=== PATIENT | male | born 1985 | race Caucasian/White ===

== ENCOUNTER 2021-07-02 11:37 | Emergency (ER) | payer BC, SELFPAY ==
[2021-07-02 11:43] VITALS: BP 149/105; PULSE 81; RESP 16; TEMP 37.3; O2SAT 100
--- NOTE | 2021-07-02 11:52 | ED.SKABFB ---
HPI - Skin/Abscess/Foreign Bdy General Chief complaint: Extremity Problem,Nontraumatic Stated complaint: right pointer finger swollen Time Seen by Provider: 07/02/21 11:42 Source: patient and RN notes reviewed Mode of arrival: ambulatory Limitations: no limitations History of Present Illness HPI narrative: 35-year-old male presents with concern for swollen, tender, red tip of the the second right finger. Reports symptoms started yesterday, worsened today with swelling. Reports he does bite his fingernails. Denies any drainage from the area. MD complaint: abscess/boil Related Data Allergies Allergy/AdvReac Type Severity Reaction Status Date / Time No Known Allergies Allergy Unverified 05/17/18 19:33 Review of Systems Review of Systems: CONSTITUTIONAL: Denies malaise, chills, sweats, or fever. SKIN: Reports redness, swelling, tenderness to the tip of the second digit of the right hand MUSCULOSKELETAL: Denies muscle skeletal pain, decreased range of motion, myalgia. NEUROLOGIC: Denies numbness, weakness All systems reviewed & are unremarkable except as noted in HPI and below PMFSH Comments At time of signature, agree with nursing past medical, surgical, social and family history. There is no relevant family history pertinent to the presenting complaint Exam Narrative: GENERAL: Well-appearing, well-nourished, and in no acute distress. HEAD: Normocephalic, atraumatic. EYES: PERRLA, conjunctivae clear ENT: Mucous membranes moist. NECK: Supple. No lymphadenopathy CHEST: Speaks in complete sentences. No respiratory distress. HEART: Regular rate and rhythm. SKIN: Warm, dry. Distal tip of the second digit of the right hand is erythematous, edematous, fluctuant, tender consistent with paronychia NEURO: Alert and oriented x3. PSYCH: Normal mood and affect Course Course Emergency Course: Patient is aware of diagnosis, understands and agrees to treatment plan. Anticipatory guidance given. Patient agrees to follow-up as directed and is aware of reasons to seek care at the emergency department. Portions of this record may have been created with voice recognition software Vital Signs Vital signs: Vital Signs Temperature 99.2 F 07/02/21 11:43 Pulse Rate 81 07/02/21 11:43 Respiratory Rate 16 07/02/21 11:43 Blood Pressure 149/105 H 07/02/21 11:43 Pulse Oximetry 100 07/02/21 11:43 Temperature 99.2 F 07/02/21 11:43 Pulse Rate 81 07/02/21 11:43 Respiratory Rate 16 07/02/21 11:43 Blood Pressure 149/105 H 07/02/21 11:43 Pulse Oximetry 100 07/02/21 11:43 Reviewed. Procedures Abscess I/D hand: Date of Incision: 07/02/21 Time of Incision: 11:55 Side (if applicable): left Local Anesthetic: none (ice) Technique: needle aspiration Amount of fluid expressed (mL): 1 Irrigation: No Packing used?: none I&D Results: Pus MDM - Skin/Abscess/Foreign Bdy MDM Narrative Medical decision making narrative: Exam findings show no acute concerns or changes; patient is non-toxic appearing and is in no distress. Patient is appropriate for outpatient treatment and follow-up. Differential Diagnosis Differential diagnosis: Likely abscess of skin or subcutaneous tissue, cellulitis and other (Paronychia, musculoskeletal injury) Critical Care Time Critical Care Time Critical Care Time: No Discharge Plan Discharge Clinical Impression: Paronychia Patient Disposition: Home, Self-Care Condition: Stable Instructions: Antibiotic Form, Paronychia (ED) Additional Instructions: Soak your nail: Soak your nail in a mixture of equal parts vinegar and water 3 or 4 times each day. This will help decrease inflammation. Apply a warm compress: Soak a washcloth in warm water and place it on your nail. This will help decrease inflammation. Elevate: Raise your nail above the level of your heart as often as you can. This will help decrease swelling and pain. Prop your n
== END 2021-07-02 11:59 | disposition home or self-care (01) ==
PROVIDERS: Emergency Provider Nurse Practitioner
DX: L03.012 Cellulitis of left finger (principal)
CPT/HCPCS: 10160; 99213; G0463

== ENCOUNTER 2024-01-11 09:41 | Emergency (ER) | payer OTHER, SELFPAY ==
[2024-01-11 09:46] VITALS: BP 154/85; PULSE 82; RESP 14; TEMP 36.7; O2SAT 100
--- NOTE | 2024-01-11 10:07 | ED.URI ---
HPI - URI/Sore Throat General Chief Complaint: Upper Respiratory Infection Stated Complaint: cough/ scratchy throat Time Seen by Provider: 01/11/24 10:00 Source: patient, RN notes reviewed and old records reviewed Mode of arrival: ambulatory Limitations: no limitations History of Present Illness HPI Narrative: 38 year old male who presents to [facility] care with complaints of scratchy throat and cough for the past 7 days with no fevers noted. Patient reports that he has tried cough drops and Cepacol lozenges for his complaints. Patient report no sinus congestion or drainage, denies any ear pain, denies any chills or sweats or any body aches. Reports no known ill contacts. MD elicited complaint: cough and sore throat (scratchy) Pertinent past history: seasonal allergies Onset (ago): day(s) (7) Severity: mild Able to tolerate fluids by mouth: Yes Treatments prior to arrival: other (Cepacol and cough drops) Related Data Allergies Allergy/AdvReac Type Severity Reaction Status Date / Time No Known Allergies Allergy Unverified 05/17/18 19:33 Review of Systems Review of Systems: CONSTITUTIONAL: Denies malaise, chills, sweats, or fever. EYES: Denies visual changes, redness, or discharge. ENT: Reports no rhinorrhea, congestion, no sinus pain,no otalgia and positive for scratchy sore throat. CARDIOVASCULAR: Denies chest pain, palpitations, or edema. RESPIRATORY: Reports cough.? Denies dyspnea. GASTROINTESTINAL: Denies abdominal pain, nausea, vomiting, diarrhea SKIN: Denies rash or itching. MUSCULOSKELETAL: Denies myalgia. NEUROLOGIC: Denies headache. All systems reviewed & are unremarkable except as noted in HPI and below PMFSH Past Medical History Medical History (Updated 01/12/24 @ 07:54 by Elizabeth Fung NP) Dental abscess History of sinus problem Social History Social History (Updated 01/11/24 @ 10:20 by Elizabeth Fung NP) Smoking status: Current every day smoker Tobacco type: e-cigarettes/vaping Additional smoking assessment comments: previous cigarette use 1/2 ppd for 20 year, has vaped for 3 years Alcohol intake: current Alcohol use details: social Substance use type: does not use Gender identity (if verbalized by the patient): Male Comments At time of signature, agree with nursing past medical, surgical, social and family history. There is no relevant family history pertinent to the presenting complaint Exam Narrative: GENERAL: Well-appearing, well-nourished, and in no acute distress. HEAD: Normocephalic EYES: PERRLA, conjunctivae clear ENT: Nares clear, turbinates edematous and erythematous, clear discharge. Mucous membranes moist. TM pearly pimentel with dull light reflex bilaterally; no tragal tenderness. Oropharynx erythematous without lesions. Tonsils not enlarged and without exudate, no drooling, no hoarseness, no trismus, uvula midline.some post nasal drainage NECK: Supple. No lymphadenopathy CHEST: Clear to auscultation, breath sounds equal. No wheezing, rhonchi, rales, or stridor. No respiratory distress, speaks in full sentences.cough SAO2 100% on room air HEART: Regular rate and rhythm. No murmur heard. SKIN: Warm, dry, no rash. NEURO: Alert and oriented x3. PSYCH: Normal mood and affect Course Course Emergency Course: Patient is aware of diagnosis, understands and agrees to treatment plan.? Anticipatory guidance given.? Patient agrees to follow-up as directed and is aware of reasons to seek care at the emergency department. Portions of this record may have been created with voice recognition software Level of Care: Express Care Visit Vital Signs Vital signs: Vital Signs Temperature 36.7 C 01/11/24 09:46 Pulse Rate 82 01/11/24 09:46 Respiratory Rate 14 01/11/24 09:46 Blood Pressure 154/85 H 01/11/24 09:46 Pulse Oximetry 100 01/11/24 09:46 Oxygen Delivery Room Air 01/11/24 09:46 Temperature 36.7 C 01/11/24 09:4
== END 2024-01-11 10:30 | disposition home or self-care (01) ==
PROVIDERS: Emergency Provider Registered Nurse
DX: J02.9 Acute pharyngitis, unspecified (principal); R05.1 Acute cough; F17.290 Nicotine dependence, other tobacco product, uncomplicated
CPT/HCPCS: 87081; 87880; 99213; G0463

== ENCOUNTER 2024-07-22 11:06 | Emergency (ER) | payer OTHER, SELFPAY ==
--- NOTE | ~2024-07-22 | XR_ITS ---
EXAMINATION: XR hand RT min 3V DATE: 07/22/2024 11:55 INDICATION: Right hand pain. TECHNIQUE: 3 views of right hand were obtained. COMPARISON: None. FINDINGS: There is a transverse fracture of neck of fifth metacarpal. The distal fracture fragment de monstrates impaction and 25 degrees palmar angulation. Joint spaces are normal. IMPRESSION: 1. Transverse fracture of neck of fifth metacarpal. Reviewed, dictated and finalized at location A. [facility]
[2024-07-22 11:15] VITALS: BP 154/95; PULSE 85; RESP 16; TEMP 37.1; O2SAT 100
--- NOTE | 2024-07-22 11:48 | ED.GENADULT ---
HPI - General Adult General Chief complaint: Extremity Injury, Upper Stated complaint: Right Hand Injury Source: patient Mode of arrival: ambulatory Limitations: no limitations History of Present Illness HPI narrative: Pt presents for evaluation of right hand pain. He indicates he punched a wall yesterday. He now has swelling and bruising present. He does not provide me with a numerical rating or descriptive quality to the pain. He is right hand dominant. He has tendinitis in multiple joints chronically for which he takes OTC pain medications. Related Data Home Medications Medication Instructions Recorded Confirmed No Home Medications 07/22/24 07/22/24 Allergies Allergy/AdvReac Type Severity Reaction Status Date / Time No Known Allergies Allergy Unverified 07/22/24 11:27 Review of Systems Review of Systems: CONSTITUTIONAL: Denies fever, chills, or sweats. EYES: Denies visual changes, redness, or discharge. ENT: Denies rhinorrhea, congestion, sore throat, or otalgia. CARDIOVASCULAR: Denies chest pain, palpitations, or edema. RESPIRATORY: Denies cough or dyspnea. GASTROINTESTINAL: Denies abdominal pain, nausea, vomiting, or diarrhea. GENITOURINARY: Denies dysuria or hematuria. SKIN:Reports bruising to right hand MUSCULOSKELETAL: Reports right hand pain and swelling NEUROLOGIC: Denies headache, numbness, dizziness, or weakness. PSYCHIATRIC: Denies anxiety or depression. [facility] Past Medical History Medical History Dental abscess History of sinus problem Tendinitis Surgical History Surgical History No significant past surgical history Family History Family History Mother Family history non-contributory Social History Social History Smoking status: Current every day smoker Tobacco type: e-cigarettes/vaping Additional smoking assessment comments: previous cigarette use 1/2 ppd for 20 year, has vaped for 3 years Alcohol intake: current Alcohol use details: social Substance use type: does not use Gender identity (if verbalized by the patient): Male Exam Narrative: GENERAL: Well-appearing, well-nourished, and in no acute distress. HEAD: Normocephalic, atraumatic. EYES: PERRLA and EOMI. ENT: Nares clear, no rhinorrhea or epistaxis. Mucous membranes moist. Oropharynx without tonsillar hypertrophy exudate or other lesions. Bilateral TMs pearly pimentel nonbulging NECK: Supple. No adenopathy or masses. No carotid bruits or JVD CHEST: Clear to auscultation. No respiratory distress. No wheezes rales or rhonchi HEART: Regular rate and rhythm. No murmur heard. Normal peripheral pulses. ABDOMEN: Soft, nontender, nondistended, normal active bowel sounds. EXTREMITIES: Full range of motion of all digits the right hand. There is swelling noted to the dorsal aspect of the right hand. There is tenderness over the MCP joints of the 4th and 5th digits of the right hand. 5/5 hand float nurse strength bilaterally SKIN: Dorsal aspect of the right hand is ecchymotic NEURO: No focal deficits. Alert and oriented x3. PSYCH: Normal mood and affect. Course Course Emergency Course: This is a 39-year-old male who presented for evaluation of right hand pain after he punched a wall. He has evidence of 5th metacarpal neck fracture. Placed in ulnar gutter splint and provided with sling. Post-splint NV intact. He declined script for analgesics. He was advised to follow up with hand surgeon. He should go to the ER for intractable pain, paresthesias, change in temperature/color of the extremity. Pt in agreement with plan of care. Level of Care: Express Care Visit Vital Signs Vital signs: Vital Signs Temperature 37.1 C 07/22/24 11:15 Pulse Rate 85 07/22/24 11:15 Respiratory Rate 16 07/22/24 11:15 Blood Pressure 154/95 H 07/22/24 11:15 Pulse Oximetry 100 07/22/24 11:15 Oxygen Delivery Room Air 07/22/24 11:15 Temperature 37.1 C 07/22/24 11:15 Pulse Rate 85 07/22/24 11:15 Respiratory Rate 16 07/22/24 11:15 Blood Pressure 154/95 H 07/22/24 11:15 Pulse Oximetry 100 07/22/24 11:15 Oxygen Delivery Room Air 07/22/24 11:15 Procedures Orthopedic Splinting/Casting Injury #1: Splinting/Casting Date: 07/22/24 Splinting/Casting Time: 13:00 Side: right Upper Extremity Injury Location: hand Splint: customized in ED OCL: ulnar gutter Pre-Procedure Neuro Vascular Exam: normal Post-Procedure Neuro Vascular Exam: normal Additional Comments: Provided with sling Medical Decision Making Vital Signs Vital Signs: Vital Signs Temperature 37.1 C 07/22/24 11:15 Pulse Rate 85 07/22/24 11:15 Respiratory Rate 16 07/22/24 11:15 Blood Pressure 154/95 H 07/22/24 11:15 Pulse Oximetry 100 07/22/24 11:15 Oxygen Delivery Room Air 07/22/24 11:15 Temperature 37.1 C 07/22/24 11:15 Pulse Rate 85 07/22/24 11:15 Respiratory Rate 16 07/22/24 11:15 Blood Pressure 154/95 H 07/22/24 11:15 Pulse Oximetry 100 07/22/24 11:15 Oxygen Delivery Room Air 07/22/24 11:15 Imaging Data Radiologist's impression: EXAMINATION: XR hand RT min 3V DATE: 07/22/2024 11:55 INDICATION: Right hand pain. TECHNIQUE: 3 views of right hand were obtained. COMPARISON: None. FINDINGS: There is a transverse fracture of neck of fifth metacarpal. The distal fracture fragment demonstrates impaction and 25 degrees palmar angulation. Joint spaces are normal. IMPRESSION: 1. Transverse fracture of neck of fifth metacarpal. Discharge Plan Discharge Clinical Impression: Closed fracture of neck of metacarpal of right hand Qualifiers: Encounter type: initial encounter Metacarpal bone: fifth Patient Disposition: Home, Self-Care Condition: Stable Instructions: Antibiotic Form, Hand Fracture (ED) Patient Language: Divehi Prescriptions: No Action No Home Medications Follow-up/Referrals: Esperanza Pool [Other] Misbah Parsons MD [Physician] - Stand Alone Forms: Work/School Release IP Time of Disposition: 12:11
== END 2024-07-22 13:14 | disposition home or self-care (01) ==
PROVIDERS: Emergency Provider Nurse Practitioner
DX: S62.336A Displaced fracture of neck of fifth metacarpal bone, right hand, initial encounter for closed fracture (principal); W22.09XA Striking against other stationary object, initial encounter; F17.290 Nicotine dependence, other tobacco product, uncomplicated
CPT/HCPCS: 29125; 73130; 99214; G0463

== ENCOUNTER 2025-03-05 11:49 | Emergency (ER) | payer SELFPAY ==
--- OUTSIDE RECORDS SUMMARY | 2025-03-05 11:51 | XMS_ITS | Clinical Summary ---
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 Name Role Phone Unavailable Primary Care Provider Unavailabl e Immunizations Immunization Administration Dates Next Due INFLUENZA VACCINE QUADRIVALENT 3 YR UP PF IM 07/2022 Social History Tobacco Use Types Packs/Day Years Used Date Smoking Tobacco: Never Assessed Sex and Gender Information Value Date Recorded Sex Assigned at Not on file Legal Sex Male 3:32 PM CDT Gender Identity Not on file Sexual Orientation Not on file Plan of Treatment Health Maintenance Due Date Last Done Comments HPV VACCINES (1 - Male 3-dose series) 2000 DTAP/TDAP/TD VACCINES (1 - Tdap) 2004 HEPATITIS B VACCINES (1 of 3 - 19+ 3-dose series) 11/2003 INFLUENZA VACCINE (#1) 2025 05/27/2022 Insurance [employer] OPEN ACCESS
--- OUTSIDE RECORDS SUMMARY | 2025-03-05 11:51 | XMS_ITS | Clinical Summary ---
Author Organization [facility] Address [address] [place] [address] Care Team Providers Care Roofing Machine Tender Name Role Phone Esperanza Pool NP Primary Care Provider Cedric Rhoades MD Unavailable [phone] Deya Wilson NP Unavailable [phone] Allergies No known active allergies Medications ibuprofen 200 mg tab/cap Take 1 tablet/capsule (200 mg total) by mouth every 8 (eight) hours as needed for pain Patient takes 1-3 tablets as needed Active hydrocortisone (ANUSOL-HC) 25 mg suppositoryIndi cations:Hemorrh oids, unspecified hemorrhoid type Insert 1 suppository (25 mg total) into the rectum 2 (two) times a day as needed for hemorrhoids 30 suppository 08/02/20 23 Active famotidine (PEPCID) 20 mg tabletIndicatio ns:Gastroesopha geal reflux disease, unspecified whether esophagitis present Take 1 tablet (20 mg total) by mouth daily as needed for heartburn 60 tablet 09/04/19 25 Active Additional Information Patient not taking.Reported on 12/20/2024 ketoconazole (NIZORAL) 2 % creamIndication s:Rash and nonspecific skin eruption Apply topically daily 60 g 11/21/19 25 Active Active Problems Problem Noted Date Diagnosed Date DDD (degenerative disc disease), cervical 2024 Assessment & Plan (11/20/2024 1:34 PM CDT): -chronic, not at/near goal -Referral sent to pain management Chronic right shoulder pain 11/20/2024 Assessment & Plan (11/20/2024 1:34 PM CDT): -chronic, not at/near goal -Referral sent to pain management Rash and nonspecific skin eruption 10/09/2024 Assessment & Plan (11/20/2024 1:32 PM CDT): -chronic, not at/near goal -no signs of infection noted -Since patient did not respond to the triamcinolone, start on ketoconazole 2% cream daily for 2 weeks -Follow up if not improving Assessment & Plan (10/09/2024 12:25 PM OCEAN TRANSPORTATION INTERMEDIARY): -chronic, not at/near goal -no signs of infection noted -Start on triamcinolone 0.1% ointment twice daily as needed for up to 2 weeks at a time -Follow up if not improving Gastroesophageal reflux disease 09/04/2024 Assessment & Plan (12/20/2024 1:42 PM CDT): -chronic, stable -Continue on famotidine 20 mg daily as needed encouraged healthy diet and exercise Avoid trigger foods including: carbonated beverages, caffeine, spicy, fried foods, tomatoes, cucumbers, mint, and acidic fruits/juices like orange/lemon/grapefruit. Avoid eating/drinking anything for at least 2 hours before bed. Sleep with bed propped. Assessment & Plan (09/04/2024 1:31 PM OCEAN TRANSPORTATION INTERMEDIARY): -chronic, not at/near goal -start on famotidine 20 mg daily as needed encouraged healthy diet and exercise Avoid trigger foods including: carbonated beverages, caffeine, spicy, fried foods, tomatoes, cucumbers, mint, and acidic fruits/juices like orange/lemon/grapefruit. Avoid eating/drinking anything for at least 2 hours before bed. Sleep with bed propped. Numbness and tingling of right arm 07/26/2024 Assessment & Plan (12/20/2024 1:43 PM CDT): -chronic, not at/near goal -Patient is awaiting his new insurance before he can schedule the target point injections as recommended by pain management -Continue follow up with pain management Cervical spine x-ray 07/26/2024: Mild C5-C6 degenerative disc disease with right-sided uncovertebral osteoarthritis and foraminal impingement. Assessment & Plan (08/14/2024 3:07 PM OCEAN TRANSPORTATION INTERMEDIARY): -chronic, improving, but not at goal -Advised patient call and schedule an appointment with pain management Cervical spine x-ray 07/26/2024: Mild C5-C6 degenerative disc disease with right-sided uncovertebral osteoarthritis and foraminal impingement. Assessment & Plan (07/26/2024 2:10 PM OCEAN TRANSPORTATION INTERMEDIARY): -chronic, not at/near goal -Cervical spine x-ray ordered today Severe episode of recurrent major depressive disorder, without psychotic features 07/26/2024 Assessment & Plan (12/20/2024 1:44 PM CDT): -chronic, improving -Vraylar was discontinued because caused adverse effects -Patient discontinued his sertraline and reports he is doing well -Continue seeing therapist -follow up in 3 months or sooner as needed Patient reiterated no suicidal thoughts at this time; take medication as directed; contact 911 and go to the ER if becomes suicidal; discussed side effects of medication with patient; encouraged healthy diet and exericise; encouraged patient to see a counselor Assessment & Plan (11/20/2024 1:34 PM CDT): -chronic, worsening -continue sertraline 100 mg 1.5 tablets daily -start on vraylar 1.5 mg daily. Coupon card given to pt. Advised patient to let me know if it is too expensive and we can try alternate medication therapy -Continue seeing therapist once a week -Referral sent to Psychiatry -follow up in 4 weeks or sooner as needed Patient reiterated no suicidal thoughts at this time; take medication as directed; contact 911 and go to the ER if becomes suicidal; discussed side effects of medication with patient; encouraged healthy diet and exericise; encouraged patient to see a counselor Assessment & Plan (10/09/2024 12:25 PM OCEAN TRANSPORTATION INTERMEDIARY): -chronic, improving, but not at goal -increase to sertraline 100 mg 1.5 tablets daily -Continue seeing therapist once a week -follow up in 6 weeks or sooner as needed Patient reiterated no suicidal thoughts at this time; take medication as directed; contact 911 and go to the ER if becomes suicidal; discussed side effects of medication with patient; encouraged healthy diet and exericise; encouraged patient to see a counselor Assessment & Plan (09/04/2024 1:30 PM OCEAN TRANSPORTATION INTERMEDIARY): -chronic, improving, but not at goal -increase to sertraline 100 mg daily -Continue seeing therapist once a week -follow up in 4 weeks or sooner as needed Patient reiterated no suicidal thoughts at this time; take medication as directed; contact 911 and go to the ER if becomes suicidal; discussed side effects of medication with patient; encouraged healthy diet and exericise; encouraged patient to see a counselor Assessment & Plan (08/14/2024 3:08 PM OCEAN TRANSPORTATION INTERMEDIARY): -chronic, improving, but not at goal -Continue on sertraline 50 mg daily for now since it has only been 3 weeks -Continue seeing therapist once a week -Keep scheduled follow up on 09/04/2024 Patient reiterated no suicidal thoughts at this time; take medication as directed; contact 911 and go to the ER if becomes suicidal; discussed side effects of medication with patient; encouraged healthy diet and exericise; encouraged patient to see a counselor Assessment & Plan (07/26/2024 2:10 PM OCEAN TRANSPORTATION INTERMEDIARY): -chronic, not at/near goal -Start on sertraline 50 mg daily -Continue seeing therapist once a week -Follow up in 4 weeks or sooner as needed Patient reiterated no suicidal thoughts at this time; take medication as directed; contact 911 and go to the ER if becomes suicidal; discussed side effects of medication with patient; encouraged healthy diet and exericise; encouraged patient to see a counselor Closed displaced fracture of neck of right fifth metacarpal bone 07/26/2024 Assessment & Plan (07/26/2024 2:11 PM OCEAN TRANSPORTATION INTERMEDIARY): -Acute, not at goal -Continue following with sports medicine Dr. Block Tendinitis of right rotator cuff 08/02/2023 Assessment & Plan (07/26/2024 2:09 PM OCEAN TRANSPORTATION INTERMEDIARY): -chronic, not at/near goal -Continue seeing ortho -Patient reports he will need surgery for this, but he has to wait till he has more FMLA Assessment & Plan (08/02/2023 2:49 PM OCEAN TRANSPORTATION INTERMEDIARY): -chronic, not at/near goal -refer to PT -if not improving may obtain x-ray and refer to ortho -continue on ibuprofen as needed Hemorrhoids 08/02/2023 Assessment & Plan (08/14/2024 3:09 PM OCEAN TRANSPORTATION INTERMEDIARY): -chronic, improving -Continue on hydrocortisone suppository twice daily as needed -recommend increasing fiber intake -recommend using witch Hannah pads -recommend drinking at least 64 oz of water daily -if not improving, may need to refer to GI Assessment & Plan (07/26/2024 2:08 PM OCEAN TRANSPORTATION INTERMEDIARY): -chronic, improving, but not at goal -Continue on hydrocortisone suppository twice daily as needed -recommend increasing fiber intake -recommend using witch Hannah pads -recommend drinking at least 64 oz of water daily -if not improving, may need to refer to GI Assessment & Plan (08/02/2023 2:50 PM OCEAN TRANSPORTATION INTERMEDIARY): -chronic, not at/near goal -start on hydrocortisone suppository twice daily as needed -recommend increasing fiber intake through diet and with Benefiber -recommend using witch Hannah pads -recommend drinking at least 64 oz of water daily -if not improving, may need to refer to GI Heel pain, bilateral 08/02/2023 Assessment & Plan (07/26/2024 2:09 PM OCEAN TRANSPORTATION INTERMEDIARY): -chronic, not at/near goal -Continue seeing foot and ankle specialist -Patient reports he will need cortisone injections for this, but he has to wait till he has more FMLA Assessment & Plan (08/02/2023 2:49 PM OCEAN TRANSPORTATION INTERMEDIARY): -chronic, not at/near goal -refer to PT -if not improving may need to obtain x-ray and refer to ortho -continue on ibuprofen as needed Encounters Date Type Department Care Team Description 12/22/2024 Orders Only [facility] Medical [facility] Primary Care at [address] [place] [address] Esperanza Pool NP 12/20/2024 1:00 PM CDT Office Visit [facility] Primary Care at [address] [place] [address] Esperanza Pool NP Severe episode of recurrent major depressive disorder, without psychotic features (HCC) (Primary Dx); Gastroesophageal reflux disease, unspecified whether esophagitis present; Numbness and tingling of right arm 12/07/2024 2:37 PM CDT - 12/07/2024 11:59 PM CDT Hospital Encounter [facility] [address] [place] [address] [address] [place] [address] Cedric Rhoades MD Myalgia, other site (Primary Dx); Degenerative disc disease, cervical; Right shoulder pain, unspecified chronicity Discharge Disposition: Discharge to home or self care from Last 3 Months Immunizations Immunization Administration Dates Next Due Influenza, Quadrivalent, Spl it, Preservative Free, Intramuscular 08/02/2023,05/27/2022 Influenza, Trivalent, Preservative Free, Intramu scular 07/26/2024 Tdap 08/14/2024 Medical History Medical History Date Comments Depression Family History Medical History Relation Name Comments bone spurs Maternal Grandmother Bone spurs Mother Diabetes Mother Arthritis Other Cancer Other Hypertension Other Diabetes Paternal Grandmother Relation Name Status Comments Maternal Grandmother Mother Other Paternal Grandmother Social History Tobacco Use Types Packs/Day Years Used Date Smoking Tobacco: Former Cigarettes 1 998 - 07/03/2023 Passive Smoke Exposure: Never Smokeless Tobacco: Current Tobacco Cessation:Ready to Q uit: Not Asked Alcohol Use Standard Drinks/Week Comments Yes 0 (1 standard drink = 0.6 oz pur e alcohol) social AUDIT-C Answer Date Recorded Q1: How often do you have a drink containing alcohol? 4 or more times a week 11/20/2024 Q2: How many drinks containi ng alcohol do you have on a typical day when you are drinking? 3 or 4 Q3: How often do you have si x or more drinks on one occasion? Monthly 11/20/2024 PHQ-2 Answer Date Recorded PHQ-2 Total Score (If total score is 3 or more points, staff should administer the PHQ-9) 0 12/20/2024 PHQ-9 Answer Date Recorded PHQ-9 Total Score 16 12/07/2024 Sex and Gender Information Value Date Recorded Sex Assigned at Not on file Legal Sex Male 7:54 AM OCEAN TRANSPORTATION INTERMEDIARY Gender Identity Not on file Sexual Orientation Not on file Obstetrics History Last Filed Vital Signs Vital Sign Reading Time Taken Comments Blood Pressure 131/82 12/20/2024 12:52 PM CDT Pulse 80 12/20/2024 12:52 PM CDT Temperature 36.7 C (98 F) 12/20/2024 12:52 PM CDT Respiratory Rate 18 12/20/2024 12:52 PM CDT Oxygen Saturation 98% 12/20/2024 12:52 PM CDT Inhaled Oxygen Concentration - - Weight 76.7 kg (169 lb) 12/20/2024 12:52 PM CDT Height 174 cm (5' 8.5) 12/20/2024 12:52 PM CDT Body Mass Index 25.32 12/20/2024 12:52 PM CDT Plan of Treatment Health Maintenance Due Date Last Done Comments Covid-19 Vaccine ( season) 2024 02/10/2021, 01/15/2021 Influenza Vaccine (#1) 2025 , 08/02/2023, 05/27/2022 Regular Well Visit/Exam 18-64 08/14/2025 08/14/2024, 08/02/2023 Depression Screening 12/20/2025 12/20/2024, 12/07/2024, 12/07/2024, Additional history exists DTaP/Tdap/Td Vaccine (2 - Td or Tdap) 08/14/2034 08/14/2024 Hepatitis B Screening Completed 08/15/2024 Hepatitis C Screening Completed 08/15/2024 HPV Vaccines Aged Out No longer eligi ble based on patient's age to complete this topic Pneumococcal vaccine <65 Aged Out No longer eligible based on patient's age to complete this topic Varicella Vaccines Discontinued Procedures Procedure Name Priority Date/Time Associated Diagnosis Comments HEPATITIS PANEL, ACUTE Routine 08/15/2024 10:14 AM OCEAN TRANSPORTATION INTERMEDIARY Annual physical exam Encounter for hepatitis C screening test for low risk patient Need for hepatitis B screening test Screen for sexually transmitted diseases Screening cholesterol level Screening for thyroid disorder from Last 3 Months or Most Recently Relevant to Health Maintenance Results * Hepatitis panel, acute Blood (08/15/2024 10:14 AM OCEAN TRANSPORTATION INTERMEDIARY) Hep A IgM Nonreactive Nonreactive Comment: Interpretive Data: If Hep A IgM Ab is reported as Equivocal, a new sample should be drawn in two weeks for testing. Current interpretive data was last revised on 19. Testing performed by: [address] [address] Hep B core IgM Nonreactive Nonreactive [facility] ([facility]) Comment: Interpretive Data If HepB Core IgM Ab is reported as Equivocal, a new sample should be drawn in two weeks for testing. Current interpretive data was last revised on 19. Testing performed by: [address] [address] Hep C Ab Nonreactive Nonreactive [facility] ([facility]) Comment: Interpretive Data Nonreactive: Antibodies to HCV not detected. Does NOT exclude the possibility of recent exposure to HCV. Equivocal: Equivocal for HCV antibodies. Supplemental molecular testing will be automatically performed to determine infection status in accordance with current CDC screening recommendations. Reactive: Positive for HCV antibodies. This may represent current or past HCV infection. Supplemental molecular testing will be automatically performed to determine current infection status in accordance with current CDC screening recommendations. Interpretive data was last revised on 2019. Testing performed by: [address] [address] HepBsAg Nonreactive Nonreactive [facility] ([facility]) Comment:Testing performed by : [address] [address] Blood 08/15/2024 10:1 4 AM OCEAN TRANSPORTATION INTERMEDIARY 08/15/2024 6:53 PM OCEAN TRANSPORTATION INTERMEDIARY Esperanza Pool NP LAB MICROBIOLOGY - GENERAL O RDERABLES Final Result [facility] ([place]) [facility] Department [place] [address] from Last 3 Months or Most Recently Relevant to Health Maintenance Insurance [employer] OOS Care Teams Roofing Machine Tender Relationship Specialty Start Date End Date Esperanza Pool NP [address] [facility] [address] [place] [address] PCP - General Family Medicine 08/02/23 Cedric Rhoades MD [address] [facility] [address] [place] [address] Consulting Physician Anesthesiology 12/07/24 Deya Wilson NP [address] [facility] [place] [address] Nurse Practitioner Family Medicine 12/07/24
--- OUTSIDE RECORDS SUMMARY | 2025-03-05 11:51 | XMS_ITS | Referral Summary ---
Author Organization [facility] Address [address] [place] [address] Care Team Providers Care Ap Operator Name Role Phone Esperanza Pool NP Primary Care Provider [phone] Cedric Rhoades MD Unavailable [phone] Deya Wilson NP Unavailable [phone] Encounters Date Type Department Care Team Description 12/22/2024 Orders Only [facility] Primary Care at [address] [place] [phone] Esperanza Pool NP 12/20/2024 1:00 PM CDT Office Visit [facility] Primary Care at [address] [place] [address] Esperanza Pool NP Severe episode of recurrent major depressive disorder, without psychotic features (HCC) (Primary Dx); Gastroesophageal reflux disease, unspecified whether esophagitis present; Numbness and tingling of right arm 12/07/2024 2:37 PM CDT - 12/07/2024 11:59 PM CDT Hospital Encounter [facility] [address] [facility] [address] [place] [address] Cedric Rhoades MD Myalgia, other site (Primary Dx); Degenerative disc disease, cervical; Right shoulder pain, unspecified chronicity Discharge Disposition: Discharge to home or self care from Last 3 Months Allergies No known active allergies Medications ibuprofen [...] eruption Apply topically daily 60 g 11/21/19 Active Active Problems Problem Noted Date Diagnosed [...] improving Assessment & Plan (10/09/2024 12:25 PM TAX PREPARER): -chronic, not at/near goal -no signs of [...] propped. Assessment & Plan (09/04/2024 1:31 PM TAX PREPARER): -chronic, not at/near goal -start on famotidine [...] impingement. Assessment & Plan (08/14/2024 3:07 PM TAX PREPARER): -chronic, improving, but not at goal -Advised patient call and schedule an appointment with pain management Cervical spine x-ray 07/26/2024: Mild C5-C6 degenerative disc disease with right-sided uncovertebral osteoarthritis and foraminal impingement. Assessment & Plan (07/26/2024 2:10 PM TAX PREPARER): -chronic, not at/near goal -Cervical spine x-ray [...] counselor Assessment & Plan (10/09/2024 12:25 PM TAX PREPARER): -chronic, improving, but not at goal -increase [...] counselor Assessment & Plan (09/04/2024 1:30 PM TAX PREPARER): -chronic, improving, but not at goal -increase [...] counselor Assessment & Plan (08/14/2024 3:08 PM TAX PREPARER): -chronic, improving, but not at goal -Continue [...] counselor Assessment & Plan (07/26/2024 2:10 PM TAX PREPARER): -chronic, not at/near goal -Start on sertraline [...] 07/26/2024 Assessment & Plan (07/26/2024 2:11 PM TAX PREPARER): -Acute, not at goal -Continue following with sports medicine Dr. Block Tendinitis of right rotator cuff 08/02/2023 Assessment & Plan (07/26/2024 2:09 PM TAX PREPARER): -chronic, not at/near goal -Continue seeing ortho -Patient reports he will need surgery for this, but he has to wait till he has more FMLA Assessment & Plan (08/02/2023 2:49 PM TAX PREPARER): -chronic, not at/near goal -refer to PT -if not improving may obtain x-ray and refer to ortho -continue on ibuprofen as needed Hemorrhoids 08/02/2023 Assessment & Plan (08/14/2024 3:09 PM TAX PREPARER): -chronic, improving -Continue on hydrocortisone suppository twice daily as needed -recommend increasing fiber intake -recommend using witch Hannah pads -recommend drinking at least 64 oz of water daily -if not improving, may need to refer to GI Assessment & Plan (07/26/2024 2:08 PM TAX PREPARER): -chronic, improving, but not at goal -Continue on hydrocortisone suppository twice daily as needed -recommend increasing fiber intake -recommend using witch Hannah pads -recommend drinking at least 64 oz of water daily -if not improving, may need to refer to GI Assessment & Plan (08/02/2023 2:50 PM TAX PREPARER): -chronic, not at/near goal -start on hydrocortisone suppository twice daily as needed -recommend increasing fiber intake through diet and with Benefiber -recommend using witch Hannah pads -recommend drinking at least 64 oz of water daily -if not improving, may need to refer to GI Heel pain, bilateral 08/02/2023 Assessment & Plan (07/26/2024 2:09 PM TAX PREPARER): -chronic, not at/near goal -Continue seeing foot and ankle specialist -Patient reports he will need cortisone injections for this, but he has to wait till he has more FMLA Assessment & Plan (08/02/2023 2:49 PM TAX PREPARER): -chronic, not at/near goal -refer to PT -if not improving may need to obtain x-ray and refer to ortho -continue on ibuprofen as needed Immunizations Immunization Administration Dates Next Due Influenza, Quadrivalent, Spl it, Preservative Free, Intramuscular 08/02/2023,05/27/2022 Influenza, Trivalent, Preservative Free, Intramu scular 07/26/2024 Tdap 08/14/2024 Social History Tobacco Use Types Packs/Day Years [...] on file Legal Sex Male 7:54 AM TAX PREPARER Gender Identity Not on file Sexual Orientation Not on file Last Filed Vital Signs Vital Sign Reading [...] 12/20/2024 12:52 PM CDT Plan of Treatment Not on file Procedures Procedure Name Priority Date/Time Associated Diagnosis Comments HEPATITIS PANEL, ACUTE Routine 08/15/2024 10:14 AM TAX PREPARER Annual physical exam Encounter for hepatitis C screening test for low risk patient Need for hepatitis B screening test Screen for sexually transmitted diseases Screening cholesterol level Screening for thyroid disorder from Last 3 Months or Most Recently Relevant to Health Maintenance Results * Hepatitis panel, acute Blood (08/15/2024 10:14 AM TAX PREPARER) Hep A IgM Nonreactive Nonreactive Comment: Interpretive Data: If Hep A IgM Ab is reported as Equivocal, a new sample should be drawn in two weeks for testing. Current interpretive data was last revised on 19. Testing performed by: , [address] [place] [address], [place]., [address] Hep B core IgM Nonreactive Nonreactive [facility] ([facility]) Comment: Interpretive Data If HepB Core IgM Ab is reported as Equivocal, a new sample should be drawn in two weeks for testing. Current interpretive data was last revised on 19. Testing performed by: [address] [address] Hep C Ab Nonreactive Nonreactive [facility] ([facility]) Comment: Interpretive Data Nonreactive: Antibodies to [...] last revised on 2019. Testing performed by: , [address] [place] [address]., [address] HepBsAg Nonreactive Nonreactive [facility] ([facility]) Comment:Testing performed by : , [address] [place] [address]., [address] Blood 08/15/2024 10:1 4 AM TAX PREPARER 08/15/2024 6:53 PM TAX PREPARER Esperanza Pool NP LAB MICROBIOLOGY - GENERAL O RDERABLES Final Result Performing Organization Address City/State/[facility] Co de Phone Number [facility] ([facility]) 1 [facility] [place] [address] from Last 3 Months or Most Recently Relevant to Health Maintenance Insurance [employer] OOS Care Teams Ap Operator Relationship Specialty Start Date End Date Esperanza Pool NP [address] [facility] [address] [place] [address] PCP - General Family Medicine 08/02/23 Cedric Rhoades MD [address] [facility] [address] [place] [address] Consulting Physician Anesthesiology 12/07/24 Deya Wilson NP [address] [facility] [place] [address] Nurse Practitioner Family Medicine 12/07/24
[2025-03-05 11:53] VITALS: BP 143/82; PULSE 81; RESP 14; TEMP 37; O2SAT 99
--- NOTE | 2025-03-05 12:14 | ED_ITS ---
HPI - Extremity Problem General Chief complaint: Extremity Problem,Nontraumatic Stated complaint: left leg upper thigh numbness Time Seen by Provider: 03/05/25 12:14 Source: patient, RN notes reviewed and old records reviewed Mode of arrival: ambulatory Limitations: no limitations History of Present Illness HPI Narrative: 39-year-old male presents to the [facility] with left lateral thigh numbness since 5:00 a.m.. States it is mid thigh. Walks with a normal gait. No numbness or tingling anywhere else on his leg. Denies back pain, hip pain States that if his cell phone is in his pocket he cannot feel of it vibrates. Denies No bruising, swelling noted. No rashes noted. Related Data Home Medications ?Medication ?Instructions ?Recorded ?Confirmed ?Last Taken ?Type sertraline 100 mg tablet mg 03/05/25 Unknown History Allergies Allergy/AdvReac Type Severity Reaction Status Date / Time No Known Allergies Allergy Unverified 03/05/25 11:57 Review of Systems 2 Review of Systems: All systems reviewed & are unremarkable except as noted in HPI and below Constitutional: Constitutional: Reports no additional constitutional complaints ENT: Reports system reviewed and no additional complaints, except as documented Musculoskeletal: Musculoskeletal: Reports as per HPI Integumentary/Breasts: Skin/Breast: Reports system reviewed and no additional complaints, except as docu Neurologic: Reports as per HPI PMFSH Past Medical History Medical History Tendinitis Dental abscess History of sinus problem Surgical History Surgical History No significant past surgical history Family History Family History Mother Family history non-contributory Social History Social History Smoking status: Current every day smoker Tobacco type: e-cigarettes/vaping Additional smoking assessment comments: previous cigarette use 1/2 ppd for 20 year, has vaped for 3 years Alcohol intake: current Alcohol use details: social Substance use type: does not use Gender identity (if verbalized by the patient): Male Comments At the time of my signature, I reviewed and agree with the nursing past medical, surgical, social, and family history. There is no relevant family history pertinent to the patient complaint. Exam 2 Const: General: cooperative, healthy appearing, comfortable, no acute distress, well developed, alert and well nourished Nutritional Appearance: w ell nourished Orientation/consciousness: patient oriented x3 Limitations: no limitations HENMT: Head: normal to inspection Eyes: General: appearance normal, both eyes and all related structures A lignment and Position: alignment normal Neck: Neck: normal visual inspection, full ROM, no lymphadenopathy and no meningeal signs Chest: Chest palpation & inspection: normal inspection of the chest Resp: Effort & Inspection: normal respiratory effort and able to speak in complete sentences Cardio: Rate: regular rate Back/Spine/Pelvis: Back: No back tenderness Skin: General skin exam: normal color and no rashes or lesions noted Neuro: General: patient oriented x3, gait normal, moves all extremities and no meningeal signs Cognition (Neuro): normal cognition Speech: normal speech Gait exam (Neuro): Normal gait present Extrem: General: normal to inspection, full ROM, capillary refill normal and normal gait Left lower extremity: full ROM, hip/thigh Details: normal ROM; no tenderness, no swelling, no abrasions, no lacerations, no ecchymosis, no crepitus, no foreign bodies, no penetrating wound, no deformity and no unusual warmth, knee Details: normal to inspection and lower leg Details: normal to inspection; no cyanosis Upper/lower leg/hip images: 1. Reports numbness just to mid lateral thigh. No other findings, no erythema, ecchymosis or rashes noted. Sensation intact distal to area. Capillary refill under 2 seconds. Psych: Appearance: grossly normal and well kempt Mental Status: mental status grossly normal Speech and movement: Normal speech and movement present and Clear speech present Affect: normal affect Attitude: cooperative Course Course Level of Care: Express Care Visit Vital Signs Vital signs: Vital Signs Temperature 98.6 F 03/05/25 11:53 Pulse Rate 81 03/05/25 11:53 Respiratory Rate 14 03/05/25 11:53 Blood Pressure 143/82 H 03/05/25 11:53 Pulse Oximetry 99 03/05/25 11:53 Oxygen Delivery Room Air 03/05/25 11:53 Temperature 98.6 F 03/05/25 11:53 Pulse Rate 81 03/05/25 11:53 Respiratory Rate 14 03/05/25 11:53 Blood Pressure 143/82 H 03/05/25 11:53 Pulse Oximetry 99 03/05/25 11:53 Oxygen Delivery Room Air 03/05/25 11:53 Reviewed MDM - Extremity (Nontraumatic) MDM Narrative Medical decision making narrative: Patient sitting in exam room. Patient is nontoxic, vitals stable. Patient presents with an area of the left lateral thigh numbness. No acute findings noted on exam other than decreased sensation No red flag symptoms of his back or hip. No trauma to the area. Patient appropriate for outpatient treatment with close follow-up Discharge instructions reviewed with patient, as well as provided in writing per nursing staff. The instructions also include specific and strict return/GO TO THE ER as well as f/u information. All questions have been answered, and the patient deny any further questions with discharge and discharge plan. Some parts of this dictation were generated by voice recognition software and may contain typographical and/or grammatical inaccuracies. Critical Care Time Critical Care Time Critical Care Time: No Discharge Plan Discharge Clinical Impression: Paresthesia Patient Disposition: Home Condition: Stable Instructions: Antibiotic Form, Paresthesia (ED) Additional Instructions: Follow-up with primary care provider For new or worsening symptoms go directly to the emergency room Patient Language: [place] Prescriptions: No Action sertraline 100 mg tablet Follow-up/Referrals: PHYSICIAN NOT ON STAFF,NONSTAFF [Primary Care Provider] - Time of Disposition: 12:24
== END 2025-03-05 12:27 | disposition home or self-care (01) ==
PROVIDERS: Emergency Provider Nurse Practitioner
DX: R20.2 Paresthesia of skin (principal); F17.290 Nicotine dependence, other tobacco product, uncomplicated
CPT/HCPCS: 99211; G0463